=== PATIENT | female | born 1970 | race Caucasian/White ===

== ENCOUNTER 2019-11-17 07:54 | Emergency (ER) | payer OTHER ==
[~2019-11-17] VITALS: Ht 154.9 cm; Wt 59.0 kg
[2019-11-17] MEDS ORDERED: GABAPENTIN300 M2 (08:03)
== END 2019-11-17 12:51 | disposition home or self-care (01) ==
LOC: ER 07:54
DX: R10.31 Right lower quadrant pain (principal)

== ENCOUNTER 2020-12-30 15:47 | Emergency (ER) | payer OTHER ==
[~2020-12-30] VITALS: Ht 154.9 cm; Wt 62.1 kg
[~2020-12-30 15:47] MED LIST: GABAPENTIN300 M2
== END 2020-12-30 18:12 | disposition home or self-care (01) ==
LOC: ER 15:47
DX: R07.89 Other chest pain (principal)

== ENCOUNTER → 2024-03-28 | Emergency (ER) | payer OTHER ==
[~2024-03-28] VITALS: Ht 154.9 cm; Wt 62.6 kg
[~2024-03-28] MED LIST changes: +KETOROLAC TROMETHAMINE 30 MG VIAL IM STA
== END | disposition home or self-care (01) ==
LOC: ER 08:58
DX: M54.2 Cervicalgia (principal)
CPT/HCPCS: 72040; 96372; 99283; J1885